=== PATIENT | male | born 1940 | race Two or more races ===

== ENCOUNTER 2021-08-25 08:00 | Outpatient (CLI) | payer OTHER | END 2021-08-25 08:30 | disposition home or self-care (01) | LOC: PPH VACUNA 08:00 | PROVIDERS: ATTEND Emergency Medicine Pediatric Emergency Medicine | DX: Z23 Encounter for immunization (principal) ==

== ENCOUNTER 2022-06-28 08:25 | Outpatient (CLI) | payer OTHER | END 2022-06-28 14:23 | disposition home or self-care (01) | LOC: LAB 08:25 | PROVIDERS: ATTEND Internal Medicine Cardiovascular Disease | DX: I10 Essential (primary) hypertension (principal); E11.9 Type 2 diabetes mellitus without complications; E03.9 Hypothyroidism, unspecified; E78.2 Mixed hyperlipidemia; Z12.11 Encounter for screening for malignant neoplasm of colon; E55.9 Vitamin D deficiency, unspecified; N40.0 Benign prostatic hyperplasia without lower urinary tract symptoms ==

== ENCOUNTER 2022-08-30 14:21 | Outpatient (CLI) | payer OTHER | END 2022-08-30 14:45 | disposition home or self-care (01) | LOC: LAB 14:21 | PROVIDERS: ATTEND Internal Medicine Cardiovascular Disease | DX: E11.9 Type 2 diabetes mellitus without complications (principal); I10 Essential (primary) hypertension; E03.9 Hypothyroidism, unspecified; E78.2 Mixed hyperlipidemia; E55.9 Vitamin D deficiency, unspecified; N40.0 Benign prostatic hyperplasia without lower urinary tract symptoms ==

== ENCOUNTER 2023-06-11 09:33 | Outpatient (CLI) | payer OTHER ==
[2023-06-12 13:08] LABS: ob NEGATIVE (NEGATIVE)
[2023-06-12 13:10] LABS: FECAL LEUKOCYTES NEGATIVE (NEGATIVE)
== END 2023-06-11 09:45 | disposition home or self-care (01) ==
LOC: LAB 09:33
PROVIDERS: ATTEND Internal Medicine Cardiovascular Disease
DX: R10.9 Unspecified abdominal pain (principal); R05.9 Cough, unspecified; Z12.11 Encounter for screening for malignant neoplasm of colon; D64.0 Hereditary sideroblastic anemia

== ENCOUNTER 2024-12-22 11:39 | Outpatient (CLI) | payer OTHER | END 2024-12-22 11:43 | disposition home or self-care (01) | LOC: SONOGRAMA 11:39 | DX: N50.819 Testicular pain, unspecified (principal) ==